=== PATIENT | male | born 1980 ===

== ENCOUNTER 2023-08-21 10:29 | Emergency (ER) | payer OTHER ==
[~2023-08-21 10:29] MED LIST: Iopamidol 370 76% 100 ML VIAL ONE
[2023-08-21] MEDS ORDERED: Sodium Chloride 0.9% 1,000 ML ONE (10:57)
[2023-08-21 11:30] LABS: Band 22 % (5-11); Hematocrit 47.7 % (42.0-52.0); Hemoglobin 15.5 g/dL (14.0-18.0); Lymphocytes 20 % (21-51); MDiff Complete? YES; Mean Corpuscular HGB CONC 32.6 g/dL (32.0-36.0); Mean Corpuscular Hemoglobin 28.5 pg (27.0-31.0); Mean Corpuscular Volume 87.4 fl (78.0-98.0); Mean Platelet Volume 9.8 fL (7.4-10.4); Monocytes 4 % (0-10); Neutrophil 52 % (42-75); Platelet Adequacy Comment Appears Adequate; Platelet Count 184 10x3/uL (130-400); RBC Distribution Width 11.8 % (11.5-14.5); Red Blood Cell (RBC) Count 5.46 mill/uL (4.70-6.10); White Blood Cell (WBC) Count 7.1 10x3/uL (4.8-10.8)
[2023-08-21 11:33] LABS: ALT (SGPT) 65 U/L (8-55); AST (SGOT) 47 U/L (5-34); Albumin 4.3 g/dL (3.5-5.0); Alkaline Phosphatase 86 U/L (40-110); Anion Gap 15 mmol/L (10-20); BUN (Urea Nitrogen) 12 mg/dL (8.9-20.6); Bilirubin, Total 0.7 mg/dL (0.2-1.2); Calc. Creatinine Clearance 0 mL/min (70-130); Calcium 8.9 mg/dL (7.8-10.44); Carbon Dioxide 23 mmol/L (22-29); Chloride 103 mmol/L (98-107); Estimated GFR 90; Globulin 3.2 g/dL (2.4-3.5); Glucose 95 mg/dL (70-105); Lipase 5 U/L (8-78); Magnesium 2.2 mg/dL (1.6-2.6); Potassium 4.1 mmol/L (3.5-5.1); Protein, Total 7.5 g/dL (6.0-8.3); Sodium 137 mmol/L (136-145)
== END 2023-08-21 11:56 | disposition home or self-care (01) ==
LOC: MADERS 10:29
DX: K52.9 Noninfective gastroenteritis and colitis, unspecified (principal); I88.0 Nonspecific mesenteric lymphadenitis; K76.89 Other specified diseases of liver; R74.01 Elevation of levels of liver transaminase levels
CPT/HCPCS: 74177; 80053; 83690; 83735; 85025; 96360; J7050; Q9967

== ENCOUNTER 2025-05-03 17:58 | Outpatient (CLI) | payer OTHER | END 2025-05-03 17:59 | LOC: MADRAD 17:58 | PROVIDERS: ATTEND Registered Nurse | DX: M25.511 Pain in right shoulder (principal); M19.011 Primary osteoarthritis, right shoulder ==